=== PATIENT | female | born 1955 | race Caucasian/White ===

== ENCOUNTER → 2021-01-10 | Outpatient (CLI) | payer MEDICARE ==
[~2021-01-10] VITALS: Ht 172.7 cm; Wt 90.7 kg
== END ==
LOC: OPSV 12:31
DX: L40.50 Arthropathic psoriasis, unspecified (principal)
CPT/HCPCS: 96372; J3357

== ENCOUNTER → 2021-02-07 | Outpatient (CLI) | payer MEDICARE | LOC: OPSV 12:41 | DX: L40.50 Arthropathic psoriasis, unspecified (principal) | CPT/HCPCS: 96372; J3357 ==

== ENCOUNTER → 2021-04-24 | Outpatient (CLI) | payer MEDICARE, OTHER | LOC: HEART CORB 08:40 | DX: R07.2 Precordial pain (principal); R06.02 Shortness of breath; I10 Essential (primary) hypertension; J44.9 Chronic obstructive pulmonary disease, unspecified; L40.50 Arthropathic psoriasis, unspecified; M19.90 Unspecified osteoarthritis, unspecified site; M25.50 Pain in unspecified joint; K21.9 Gastro-esophageal reflux disease without esophagitis | CPT/HCPCS: 78452; A9502; J2785 ==